=== PATIENT | female | born 1970 | race Two or more races ===

== ENCOUNTER 2021-03-17 09:36 | Outpatient (CLI) | payer OTHER | END 2021-03-17 09:56 | disposition home or self-care (01) | LOC: TOM 09:36 | PROVIDERS: ATTEND Internal Medicine Nephrology | DX: N28.89 Other specified disorders of kidney and ureter (principal); Q44.6 Cystic disease of liver; Q61.2 Polycystic kidney, adult type; N18.6 End stage renal disease ==